=== PATIENT | male | born 1970 | race Caucasian/White ===

== ENCOUNTER 2017-11-30 12:11 | Emergency (ER) | payer OTHER ==
[2017-11-30 12:30] VITALS: BP 133/75; PULSE 96; RESP 18; TEMP 99
[2017-11-30] MEDS ORDERED: ORPHENADRINE 30 MG/ML 2 ML VIAL IM STA (13:51)
[2017-11-30] MEDS ORDERED: KETOROLAC 30 MG/ML 1 ML VIAL IM STA (13:51)
[2017-11-30] MEDS ORDERED: HYDROcodone/APAP 5-325MG 1 EACH TAB PO STA (13:52)
[2017-11-30 14:19] LABS: Appearance,Urine Clear (Clear); Bilirubin,Urine Negative (Negative); Blood,Urine Negative (Negative); Color,Urine Light Yellow; Glucose,Urine (UA) Negative (Negative); Ketones,Urine Negative (Negative); Leukocyte Esterase,Urine Negative (Negative); Nitrite,Urine Negative (Negative); PH, Urine 7.5 (5.0-8.0); Protein,Urine Negative (Negative); Specific Gravity,Urine 1.005 (1.001-1.035); Urobilinogen,Urine <2.0 mg/dL (<2.0)
[2017-11-30] MEDS ORDERED: ACET/COD 300 MG/30 MG STARTER PACK 6 TAB BTL PO STA (14:47)
--- NOTE | 2017-11-30 14:47 | ED ---
Back Pain HPI - General Chief Complaint: Back Pain/Injury Stated Complaint: back pain Time Seen by Provider: 11/30/17 12:55 Source: patient Limitations: no limitations - History of Present Illness Initial Comments: 47-year-old male patient presents to the emergency department today for evaluation of thoracic back pain. Patient states that Friday after he woke from a nap he had presence of the pain. He describes the pain as sharp. States it worses with bending and twisting motions. Gets better with rest. Patient states the pain radiates down to his lumbar spine. Denies any radiation of the pain to his legs. Denies any weakness of his extremities, numbness, or tingling. Denies any saddle anesthesia or loss of bowel or bladder control. Denies any fevers or chills. Denies any history of IV drug use. Denies any chest pain,shortness of breath, abdominal pain, nausea, vomiting, constipation, diarrhea, hematuria, dysuria, urinary frequency, urinary urgency. Patient states that he has had back pain one time the past after he fell from a roof, this was about a year ago. States he did receive field care advocate at that time which resolved his pain. Denies any other medical conditions. - Related Data Previous Rx's Medication Instructions Recorded Cyclobenzaprine [Flexeril] 10 mg PO TID #15 tab 11/30/17 Ibuprofen [Motrin] 600 mg PO Q8HR PRN #30 tab 11/30/17 Allergies Allergy/AdvReac Type Severity Reaction Status Date / Time No Known Allergies Allergy Verified 11/30/17 12:30 Review of Systems ROS Statement: Those systems with pertinent positive or pertinent negative responses have been documented in the HPI. ROS Other: All systems not noted in ROS Statement are negative. 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 Vital signs upon presentation are 99.0F, pulse 96, respirations 18, blood pressure 133/75, pulse ox 99% on room air.) Eye exam: Present: normal appearance, PERRL, EOMI. Absent: scleral icterus, conjunctival injection, periorbital swelling ENT exam: Present: normal exam, normal oropharynx, mucous membranes moist Respiratory exam: Present: normal lung sounds bilaterally. Absent: respiratory distress, wheezes, rales, rhonchi, stridor Cardiovascular Exam: Present: regular rate, normal rhythm, normal heart sounds. Absent: systolic murmur, diastolic murmur, rubs, gallop, clicks GI/Abdominal exam: Present: soft, normal bowel sounds. Absent: distended, tenderness, guarding, rebound, rigid Extremities exam: Present: normal inspection, full ROM, normal capillary refill , other (Skin to the bilateral lower extremities pink, warm, and dry. Cap refills less than 3 seconds. Pedal pulses 2+ and equal bilaterally. Upper extremities is pink, warm, and dry. Cap refills less than 3 seconds. Radial pulses are 2+ and equal bilaterally. ). Absent: tenderness, pedal edema, joint swelling, calf tenderness Back exam: Present: normal inspection, vertebral tenderness (There is some upper thoracic vertebral tenderness. paraspinal tenderness.). Absent: CVA tenderness (R), CVA tenderness (L) Neurological exam: Present: alert, oriented X3, CN II-XII intact Psychiatric exam: Present: normal affect, normal mood Skin exam: Present: warm, dry, intact, normal color. Absent: rash Course Vital Signs 11/30/17 11/30/17 12:27 15:20 Temperature 99 F 99 F Pulse Rate 96 96 Respiratory 18 18 Rate Blood Pressure 133/75 133/75 O2 Sat by Pulse 99 99 Oximetry Medical Decision Making - Medical Decision Making 47-year-old male patient presents to emergency department today for evaluation of increased pain to his back since Friday. Physical examination did reveal some mild upper thoracic tenderness but no paraspinal tenderness. No evidence of abscess. No history of intravenous drug use. Neurovascular status is intact. Patient is neurologically intact. Given patient's symptoms and physical exam findings patient is also likely suffering from mechanical back pain. He will be given ibuprofen and Flexeril for pain control. Instructed to apply warm moist heat to the painful areas. He is instructed to follow-up with his primary care physician for recheck in 1-2 days. Return parameters were discussed in detail. He verbalizes understanding and agrees this plan. - Lab Data Lab Results 11/30/17 Range/Units 14:00 Urine Color Light Yellow Urine Appearance Clear (Clear) Urine pH 7.5 (5.0-8.0) Ur Specific [place] 1.005 (1.001-1.035) Urine Protein Negative (Negative) Urine Glucose (UA) Negative (Negative) Urine Ketones Negative (Negative) Urine Blood Negative (Negative) Urine Nitrite Negative (Negative) Urine Bilirubin Negative (Negative) Urine Urobilinogen <2.0 (<2.0) mg/dL Ur Leukocyte Esterase Negative (Negative) Disposition Clinical Impression: Thoracic back pain Disposition: HOME SELF-CARE Condition: Good Instructions: Back Pain (ED) Additional Instructions: Take medications as directed. Follow-up with your primary care physician for recheck in 1-2 days. Return here immediately for any new, worsening, or concerning symptoms. Prescriptions: Cyclobenzaprine [Flexeril] 10 mg PO TID #15 tab Ibuprofen [Motrin] 600 mg PO Q8HR PRN #30 tab PRN Reason: Pain Is patient prescribed a controlled substance at d/c from ED?: No Referrals: Madan Reece MD [Primary Care Provider] - 1-2 days Time of Disposition: 14:46
== END 2017-11-30 15:19 | disposition home or self-care (01) ==
LOC: EC 12:11
DX: M54.6 Pain in thoracic spine (principal); F17.200 Nicotine dependence, unspecified, uncomplicated
CPT/HCPCS: 81003; 99284; 96372 ×2; J2360; J1885